=== PATIENT | female | born 1955 | race Caucasian/White ===

== ENCOUNTER 2020-12-11 10:00 | Outpatient (CLI) | payer MEDICARE, MEDICAID, SELFPAY ==
[2020-12-11 11:19] LABS: Basophils # 0.1 10^3/uL (0.0-0.1); Basophils % 0.6 %; Eosinophils # 0.2 10^3/uL (0.0-0.8); Hematocrit 46.1 % (37.0-47.0); Hemoglobin 14.5 g/dL (11.5-15.3); Lymphocytes # 2.2 10^3/uL (0.8-4.8); Lymphocytes % 21.1 %; Mean Corpuscular HGB Conc 31.5 g/dL (30.0-36.0); Mean Corpuscular Hemoglobin 30.5 pg (28.0-34.0); Mean Corpuscular Volume 96.8 fl (81-99); Mean Platelet Volume 10.6 fL (7.4-10.4); Monocytes # 0.9 10^3/uL (0.2-0.9); Monocytes % 8.7 %; Neutrophils # 6.89 10^3/uL (1.8-7.7); Neutrophils % 66.6 %; Nucleated Red Blood Cells % 0 %; Platelet Count 304 10^3/cmm (130-400); Red Blood Count 4.76 10^6/uL (4.1-5.3); Red Cell Distribution Width 12.6 % (12.1-15.1); White Blood Count 10.3 10^3/uL (4.0-10.0)
[2020-12-11 11:45] LABS: Alanine Aminotransferase 19 U/L (0-33); Albumin Level 4.3 g/dL (3.5-5.2); Alkaline Phosphatase 84 IU/L (35-105); Anion Gap 15.3 (5-19); Aspartate Amino Transferase 20 U/L (0-32); Blood Urea Nitrogen 15 mg/dL (8-23); C Reactive Protein 2.8 mg/L (0.0-4.9); Calcium 9.6 mg/dL (8.5-10.5); Carbon Dioxide 23 mmol/L (22-29); Chloride 101 mmol/L (98-107); Globulin 2.6 g/dL (1.3-4.6); Glomerular Filtration Rate 62.5 mL/min (90-130); Glucose 91 mg/dL (65-115); Osmolality Calculated 280 mOsm/kg (285-295); Potassium 4.3 mmol/L (3.5-5.1); Sodium 135 mmol/L (136-145); Total Bilirubin 0.3 mg/dL (0.15-1.2); Total Protein 6.9 g/dL (6.6-8.7)
[2020-12-15 10:59] LABS: Erythrocyte Sedimentation Rate 5 mm/hr (0-15)
[2020-12-15 13:18] LABS: SCL 70 <1.0 NEG AI (<1.0 NEG)
[2020-12-15 13:27] LABS: Anti-Double Strand DNA AB 4 IU/mL; SS A Ro Sjogrens Antibody <1.0 NEG AI (<1.0 NEG); SS-B/LA IGG <1.0 NEG AI (<1.0 NEG)
[2020-12-15 15:12] LABS: Anti-Nuclear Antibody Screen NEGATIVE (NEGATIVE)
[2020-12-15 15:32] LABS: Cyclic Citrullinated Peptide <16 UNITS
[2020-12-15 16:02] LABS: Alternaria Alternata (M6) Ige <0.10 kU/L; Alternaria Class 0; Bermuda Class 0; Bermuda Grass (G2) Ige <0.10 kU/L; Cat Dander (E1) Ige <0.10 kU/L; Cat Dander Class 0; Common Ragweed (Short) (W1) Ig <0.10 kU/L; D. Farinae Class 0; Dermatophagoides Class 0; Dermatophagoides Farinae (D2) <0.10 kU/L; Dermatophagoides Pteronyssinus <0.10 kU/L; Dog Dander (E5) Ige <0.10 kU/L; Dog Dander Class 0; Elm (T8) Ige <0.10 kU/L; Elm Class 0; English Plantain (W9) Ige <0.10 kU/L; English Plantain Class 0; House Dust (Greer) (H1) Ige <0.10 kU/L; House Dust (Hollister- Stier) <0.10 kU/L; House Dust Class 0; Immunoglobulin E 10 kU/L (<OR=114); Immunoglobulin E 9 kU/L (<OR=114); Johnson Grass (G10) Ige <0.10 kU/L; Johnson Grass Cl 0; June Grass Class 0; June Grass(Kentucky Blue) (G8) <0.10 kU/L; Lamb'S Quarters (Goose Foot) <0.10 kU/L; Lamb'S Quarters Class 0; Maple (Box Elder) (T1) Ige <0.10 kU/L; Maple Class 0; Meadow Fescue (G4) Ige <0.10 kU/L; Meadow Fescue Class 0; Mucor Racemosus Class 0; Oak (T7) Ige <0.10 kU/L; Oak Class 0; Orchard Grass (Cocksfoot) (G3) <0.10 kU/L; Penicillium Class 0; Penicillium Notatum (M1) Ige <0.10 kU/L; Perennial Rye Grass (G5) Ige <0.10 kU/L; Perennial Rye Grass Class 0; Ragweeed Class 0; Rough Marsh Elder (W16) Ige <0.10 kU/L; Rough Marsh Elder Class 0; Sweet Vernal Class 0; Sweet Vernal Grass (G1) Ige <0.10 kU/L; Timothy Grass (G6) Ige <0.10 kU/L; Timothy Grass Class 0
[2020-12-16 16:32] LABS: Aspergillus Fumigatus, Igg Ab, 5.6 mg/L (<=102)
== END 2020-12-11 10:01 | disposition home or self-care (01) ==
PROVIDERS: Visit Provider Internal Medicine Pulmonary Disease
DX: J44.9 Chronic obstructive pulmonary disease, unspecified (principal); R06.02 Shortness of breath
CPT/HCPCS: 80053; 82785; 85025; 85651; 86003; 86038; 86140; 86200; 86225; 86235; 86331; 86431; 86606; 86609

== ENCOUNTER 2020-12-24 23:21 | Emergency (ER) | payer MEDICARE, MEDICAID, SELFPAY ==
[2020-12-24 23:29] VITALS: BP 151/82; PULSE 70; RESP 22; TEMP 36.7; O2SAT 94; BMI 24.2
--- NOTE | 2020-12-24 23:40 | CTR_ITS ---
PROCEDURE INFORMATION: Exam: CT Chest Without Contrast; Diagnostic Exam date and time: 12/24/2020 11:40 PM Age: 65 years old Clinical indication: Injury or trauma; Abdominal wall; Blunt trauma (contusions or hematomas); Prior surgery; Surgery type: Hysterectomy. Left hip. ; Patient HX: Fall last night onto left side. C/O left chest/abd wall pain. TECHNIQUE: Imaging protocol: Diagnostic computed tomography of the chest without contrast. Radiation optimization: All CT scans at this facility use at least one of these dose optimization techniques: automated exposure control; mA and/or kV adjustment per patient size (includes targeted exams where dose is matched to clinical indication); or iterative reconstruction. COMPARISON: CR (CHEST, ) 12/24/2020 11:46 PM RADIATION DOSE METRICS: Total DLP (mGy-cm): 1457.12 FINDINGS: Lungs: Emphysematous changes. Right upper lobe 2.3 cm focal nodular airspace opacity. Pleural spaces: Left lower lobe 8.5 mm pulmonary nodule abutting the posterior pleural surface. Heart: Coronary artery atherosclerotic calcifications. Aorta: Unremarkable. No aortic aneurysm. Lymph nodes: Unremarkable. No enlarged lymph nodes. Bones/joints: Left 8th posterolateral chronic rib fracture. Soft tissues: Unremarkable. IMPRESSION: 1. Negative for acute a traumatic injury to the chest. 2. Left 8th posterolateral chronic rib fracture. 3. Coronary artery atherosclerotic calcifications. 4. Emphysematous changes. 5. Right upper lobe 2.3 cm focal nodular airspace opacity and a left lower lobe 8.5 mm pulmonary nodule abutting the posterior pleural surface. For patients at low risk (minimal or absent history of smoking and of other known risk factors), recommend CT Chest at 3-6 months, then consider CT Chest at 18-24 months. For patients at high risk (history of smoking or of other known risk factors), recommend CT Chest at 3-6 months, then CT Chest at 18-24 months. (Reference: Candida) REFERENCES: Candida Nassar et al. Guidelines for Management of Incidental Pulmonary Nodules Detected on CT Images: From the Fleischner Society 2017. Radiology. 2017;284(1):228-243. PROCEDURE INFORMATION: Exam: CT Abdomen And Pelvis Without Contrast Exam date and time: 12/24/2020 11:40 PM Age: 65 years old Clinical indication: Injury or trauma; Abdominal wall; Blunt trauma (contusions or hematomas); Prior surgery; Surgery type: Hysterectomy. Left hip. ; Patient HX: Fall last night onto left side. C/O left chest/abd wall pain. TECHNIQUE: Imaging protocol: Computed tomography of the abdomen and pelvis without contrast. Radiation optimization: All CT scans at this facility use at least one of these dose optimization techniques: automated exposure control; mA and/or kV adjustment per patient size (includes targeted exams where dose is matched to clinical indication); or iterative reconstruction. COMPARISON: CR (CHEST, ) 12/24/2020 11:46 PM RADIATION DOSE METRICS: Total DLP (mGy-cm): 1457.12 FINDINGS: Liver: Normal. No mass. Gallbladder and bile ducts: Normal. No calcified stones. No ductal dilation. Pancreas: Normal. No ductal dilation. Spleen: Normal. No splenomegaly. Adrenal glands: Normal. No mass. Kidneys and ureters: Normal. No hydronephrosis. Stomach and bowel: Diverticulosis without diverticulitis. Appendix: No evidence of appendicitis. Intraperitoneal space: Unremarkable. No free air. No significant fluid collection. Vasculature: Unremarkable. No abdominal aortic aneurysm. Lymph nodes: Unremarkable. No enlarged lymph nodes. Urinary bladder: Unremarkable as visualized. Reproductive: Unremarkable as visualized. Bones/joints: Unremarkable. No acute fracture. Soft tissues: Unremarkable. CT/CT chest abd pel wo con IMPRESSION: 1. Negative for traumatic injury to the abdomen or pelvis. 2. Diverticulosis without diverticulitis. Radiation Dose CTDIVOL = (mGy): DLP = 1457.12~1457.12 (mGy-cm)
--- NOTE | 2020-12-24 23:40 | XRR_ITS ---
PROCEDURE INFORMATION: Exam: XR Chest Exam date and time: 12/24/2020 11:40 PM Age: 65 years old Clinical indication: Injury or trauma; Blunt trauma (contusions or hematomas); Injury details: Fall x today. Pain in left side of abd/chest TECHNIQUE: Imaging protocol: XR of the chest. Views: 1 view. COMPARISON: No relevant prior studies available. FINDINGS: Lungs: Bibasilar atelectasis versus minimal infiltrate. Pleural spaces: Unremarkable. No pleural effusion. No pneumothorax. Heart/Mediastinum: Unremarkable. No cardiomegaly. Bones/joints: Unremarkable. Hiatal hernia suspected XR/XR chest 1V portable [id number] IMPRESSION: 1. Negative for traumatic injury to the chest. 2. Bibasilar atelectasis versus minimal infiltrate. 3. Hiatal hernia suspected Radiation Dose CTDIVOL = (mGy): DLP = (mGy-cm)
[2020-12-25 00:08] VITALS: RESP 18; O2SAT 95
[2020-12-25] MEDS: morphine 4 mg/mL SDV 1 mL IVP ×2 (00:08→00:56)
[2020-12-25] MEDS: ondansetron 2 mg/ML SDV 2 mL 4 MG IVP (00:08)
--- NOTE | 2020-12-25 00:24 | ED_ITS ---
HPI - Fall General: Chief Complaint: Fall Stated Complaint: FALL Time Seen by Provider: 12/24/20 23:29 Source: patient and EMS Mode of arrival: EMS Limitations: no limitations History of Present Illness: HPI Narrative: 65-year-old female who states that she tripped and fell tonight. She landed on a table with her left ribs. She states that she has had pain in her ribs since then she rates a 6 out of 10 worse with palpation improved with rest. She denies any her head denies any neck pain she is been amatory since the event. Denies passing out Associated symptoms-after fall: Reports chest pain; Denies abdominal pain, headache(s) or neck pain Review of Systems Const: Denies: fever(s), chills, body aches or change in appetite Eyes: Denies: blurry vision or eye discomfort ENMT: Denies: throat pain or dental pain Card: Reports: chest pain Resp: Denies: dyspnea GI: Denies: abdominal pain, nausea, vomiting or diarrhea : Denies: dysuria Musc: Denies: neck pain or back pain Skin/Breast: Denies: rash Neuro: Denies: headache(s) Psych: Denies: depression Vidal/Lymph: Denies: easy bruising All/Imm: Denies: urticaria PFSH ED PFSH: Social History Smoking and tobacco status: former smoker Quit status (tobacco): has quit using tobacco Year quit tobacco: 2019 Former quit date comment: 1.5 ppd x 50 years Physical Exam Const: COMMON NORMALS: no acute distress, patient oriented x3 and healthy appearing HENMT: COMMON NORMALS: normocephalic and atraumatic HEAD & SCALP: normo cephalic and atraumatic Eye: COMMON NORMALS: Equal, round and reactive pupils present and EOMs intact bilaterally PUPIL: Yes Equal, round and reactive pupils present Neck/C-Spine: COMMON NORMALS: full ROM and supple Chest: COMMONS NORMALS: normal inspection of the chest OTHER: point tender over left lower chest Resp: COMMON NORMALS: normal respiratory effort, No retractions, No use of accessory muscles and clear to auscultation bilaterally AUSCULTATION: clear to auscultation bilaterally Cardio: COMMON NORMALS: regular rate, regular rhythm and No murmurs present (Cardio) RATE: regular rate RHYTHM: regular rhythm GI: COMMON NORMALS: Normal to inspection, nondistended, normoactive bowel so unds present, Soft to palpation, non-tender and no masses PALPATION: Yes Soft to palpation Extremity: COMMON NORMALS: normal to inspection and full ROM Neuro: COMMON NORMALS: patient oriented x3, moves all extremities and no focal motor deficits Psych: COMMON NORMALS: mental status grossly normal, Normal thought process present and cooperative THOUGHT PROCESS: Normal thought process present Skin: COMMON NORMALS: no rashes or lesions noted and no wounds GENERAL SKIN EXAM: no rashes or lesions noted Course Vital Signs: Vital signs: Vital Signs Temperature 98.0 F 12/24/20 23:29 Pulse Rate 70 12/24/20 23:29 Respiratory Rate 18 12/25/20 00:08 Blood Pressure 151/82 12/24/20 23:29 Pulse Oximetry 95 12/25/20 00:08 MDM - Fall MDM Narrative: Medical decision making narrative: Patient presents here with chest wall contusion from a fall no signs of any acute injury she is well- appearing had no head injury did inform her of the mass findings on CT she already does see pulmonology she is to follow-up with return if worsening she understands agrees plan. Imaging Data^: CXR: Attestation: I personally reviewed and interpreted this imaging study as follows: Radiologist's impression: [address] [address] XRay Report Signed Patient: Erica Snider Unit #: [id number] : 1955 Age/Sex: 65 / F ADM Date: 12/24/20 Loc: ER Room/Bed: Attending Dr: Ordering Provider/Ordering MD: Gerry Armijo MD Date of Service: 12/24/20 Procedure(s): XR chest 1V portable [id number] Accession Number(s): [id number] Report Number: [id number] PROCEDURE INFORMATION: Exam: XR Chest Exam date and time: 12/24/2020 11:40 PM Age: 65 years old Clinical indication: Injury or trauma; Blunt trauma (contusions or hematomas); Injury details: Fall x today. Pain in left side of abd/chest TECHNIQUE: Imaging protocol: XR of the chest. Views: 1 view. COMPARISON: No relevant prior studies available. FINDINGS: Lungs: Bibasilar atelectasis versus minimal infiltrate. Pleural spaces: Unremarkable. No pleural effusion. No pneumothorax. Heart/Mediastinum: Unremarkable. No cardiomegaly. Bones/joints: Unremarkable. Hiatal hernia suspected XR/XR chest 1V portable [id number] IMPRESSION: 1. Negative for traumatic injury to the chest. 2. Bibasilar atelectasis versus minimal infiltrate. 3. Hiatal hernia suspected Radiation Dose CTDIVOL = (mGy): DLP = (mGy-cm) Dictated By: Cristobal Story MD Signed By: Cristobal Story MD Signed Date/Time: 12/25/20 0020 DD/ 39 CT Chest: Attestation: I personally reviewed and interpreted this imaging study as follows: Radiologist's impression: [address] [place] [address] CT Scan Report Signed Patient: Erica Snider Unit #: [id number] : 1955 Age/Sex: 65 / F ADM Date: 12/24 Loc: ER Room/Bed: Attending Dr: Ordering Provider/Ordering MD: Gerry Armijo MD Date of Service: 12/24/20 Procedure(s): CT chest abd pel wo con Accession Number(s): [id number] Report Number: [id number] PROCEDURE INFORMATION: Exam: CT Chest Without Contrast; Diagnostic Exam date and time: 12/24/2020 11:40 PM Age: 65 years old Clinical indication: Injury or trauma; Abdominal wall; Blunt trauma (contusions or hematomas); Prior surgery; Surgery type: Hysterectomy. Left hip. ; Patient HX: Fall last night onto left side. C/O left chest/abd wall pain. TECHNIQUE: Imaging protocol: Diagnostic computed tomography of the chest without contrast. Radiation optimization: All CT scans at this facility use at least one of these dose optimization techniques: automated exposure control; mA and/or kV adjustment per patient size (includes targeted exams where dose is matched to clinical indication); or iterative reconstruction. COMPARISON: CR (CHEST, ) 12/24/2020 11:46 PM RADIATION DOSE METRICS: Total DLP (mGy-cm): 1457.12 FINDINGS: Lungs: Emphysematous changes. Right upper lobe 2.3 cm focal nodular airspace opacity. Pleural spaces: Left lower lobe 8.5 mm pulmonary nodule abutting the posterior pleural surface. Heart: Coronary artery atherosclerotic calcifications. Aorta: Unremarkable. No aortic aneurysm. Lymph nodes: Unremarkable. No enlarged lymph nodes. Bones/joints: Left 8th posterolateral chronic rib fracture. Soft tissues: Unremarkable. IMPRESSION: 1. Negative for acute a traumatic injury to the chest. 2. Left 8th posterolateral chronic rib fracture. 3. Coronary artery atherosclerotic calcifications. 4. Emphysematous changes. 5. Right upper lobe 2.3 cm focal nodular airspace opacity and a left lower lobe 8.5 mm pulmonary nodule abutting the posterior pleural surface. For patients at low risk (minimal or absent history of smoking and of other known risk factors), recommend CT Chest at 3-6 months, then consider CT Chest at 18-24 months. For patients at high risk (history of smoking or of other known risk factors), recommend CT Chest at 3-6 months, then CT Chest at 18-24 months. (Reference: Candida) REFERENCES: Candida H, et al. Guidelines for Management of Incidental Pulmonary Nodules Detected on CT Images: From the Fleischner Society 2017. Radiology. 2017;284(1):228-243. PROCEDURE INFORMATION: Exam: CT Abdomen And Pelvis Without Contrast Exam date and time: 12/24/2020 11:40 PM Age: 65 years old Clinical indication: Injury or trauma; Abdominal wall; Blunt trauma (contusions or hematomas); Prior surgery; Surgery type: Hysterectomy. Left hip. ; Patient HX: Fall last night onto left side. C/O left chest/abd wall pain. TECHNIQUE: Imaging protocol: Computed tomography of the abdomen and pelvis without contrast. Radiation optimization: All CT scans at this facility use at least one of these dose optimization techniques: automated exposure control; mA and/or kV adjustment per patient size (includes targeted exams where dose is matched to clinical indication); or iterative reconstruction. COMPARISON: CR (CHEST, ) 12/24/2020 11:46 PM RADIATION DOSE METRICS: Total DLP (mGy-cm): 1457.12 FINDINGS: Liver: Normal. No mass. Gallbladder and bile ducts: Normal. No calcified stones. No ductal dilation. Pancreas: Normal. No ductal dilation. Spleen: Normal. No splenomegaly. Adrenal glands: Normal. No mass. Kidneys and ureters: Normal. No hydronephrosis. Stomach and bowel: Diverticulosis without diverticulitis. Appendix: No evidence of appendicitis. Intraperitoneal space: Unremarkable. No free air. No significant fluid collection. Vasculature: Unremarkable. No abdominal aortic aneurysm. Lymph nodes: Unremarkable. No enlarged lymph nodes. Urinary bladder: Unremarkable as visualized. Reproductive: Unremarkable as visualized. Bones/joints: Unremarkable. No acute fracture. Soft tissues: Unremarkable. CT/CT chest abd pel wo con IMPRESSION: 1. Negative for traumatic injury to the abdomen or pelvis. 2. Diverticulosis without diverticulitis. Radiation Dose CTDIVOL = (mGy): DLP = 1457.12 1457.12 (mGy-cm) Dictated By: Cristobal Story MD Signed By: Cristobal Story MD Signed Date/Time: 12/25/20 0025 DD/ 2340 Discharge Plan Discharge Patient Disposition: Home Clinical Impression: Chest wall contusion, Fall, Lung mass Condition: Stable Prescriptions: New hydrocodone-acetaminophen 5-325 mg tablet 1 tab PO Q6H PRN (Reason: pain) Qty: 14 RF: 0 No Action Breztri Aerosphere 160-9-4.8 mcg/actuation HFA aerosol inhaler 2 inh inhalation BID Qty: 10.7 RF: 3 guaifenesin [Mucinex] 600 mg tablet extended release 12hr 600 mg PO BID Qty: 20 RF: 0 Discharge Orders: Discharge ED (Routine); Ordered 12/25/20 Ordered By: Gerry Armijo Referrals: Janusz Barboza MD [Primary Care Provider] - 1-3 days Discharge Diet: Advance as tolerated Discharge Activity: Resume usual activity Patient Instructions: Fall Prevention (ED), Chest Wall Pain (ED) Coding Level of Care Code ED Hvac Residential Service Technician for Chg Fwd Exam Comprehensive
[2020-12-25 00:56] VITALS: RESP 18
[2020-12-25 01:24] VITALS: BP 126/68; PULSE 92; RESP 19; O2SAT 95
--- NOTE | 2020-12-26 11:13 | DCPLANNER ---
health information managers had message to schedule a follow up appointment for patient with heart care with Dr. Juarez. health information managers called heart care, spoke with Sonia, patient has a follow up appointment scheduled for 01.22.[address] Beal, and a follow up appointment with Dr. Robertson on 12.31.20 patient is aware of both appointments.
== END 2020-12-25 01:25 | disposition home or self-care (01) ==
PROVIDERS: Emergency Provider Emergency Medicine; PCP Family Medicine
DX: S20.219A Contusion of unspecified front wall of thorax, initial encounter (principal); R91.8 Other nonspecific abnormal finding of lung field; Z87.891 Personal history of nicotine dependence; W01.0XXA Fall on same level from slipping, tripping and stumbling without subsequent striking against object, initial encounter
CPT/HCPCS: 71045; 71250; 74176; 96374; 96375; 96376; 99284; J2270; J2405

== ENCOUNTER 2021-01-15 13:38 | Outpatient (CLI) | payer MEDICARE, MEDICAID, SELFPAY ==
--- NOTE | 2021-01-15 13:43 | CT_ITS ---
WS: [id number] CT CHEST TECHNIQUE: Noncontrast CT of the chest with coronal and sagittal reformatted images. CLINICAL INFORMATION: Lung Nodule COMPARISON: CT December 24, 2020 DLP: 427.[address] scans at [facility] use at least one of these dose optimization techniques: automated e xposure control; mA and/or kV adjustment per patient size (includes targeted exams where dose is matc hed to clinical indication); or iterative reconstruction. FINDINGS: Left lower lobe subpleural nodule measures 7 mm. This is unchanged from previous. Fibrotic spiculated opacity in the right upper lobe also unchanged from the prior examination measuring 1.5 CM. Advanced chronic emphysematous changes. Small noncalcified nodule in the right upper lobe also unchanged jay uring 4 mm. A few calcified granulomas. No acute pulmonary infiltrates. No focal pneumonia or pleural fluid. Driver Guide alec left rib fractures with callus formation. Subsegmental atelectasis in the lingula. Aortic calcifi cation. Coronary calcification. Calcified mediastinal and hilar lymph nodes. Right thyroid nodule shikha suring 1.3 cm is unchanged. No axillary lymphadenopathy. Adrenal glands are normal. Fatty atrophy of the pancreas. Splenic granulomas. CT/CT chest wo con [id number] IMPRESSION: 1. Previously described pulmonary nodules are stable. Recommend 6 month follow -up. 2. Advanced chronic emphysematous changes. No acute pulmonary infiltrates. 3. Aortic calcification and coronary calcification. 4. Stable 1.3 cm right thyroid nodule.
== END 2021-01-15 13:39 | disposition home or self-care (01) ==
PROVIDERS: PCP Family Medicine; Visit Provider Internal Medicine Pulmonary Disease
DX: R91.1 Solitary pulmonary nodule (principal); E04.1 Nontoxic single thyroid nodule; I70.0 Atherosclerosis of aorta; I25.10 Atherosclerotic heart disease of native coronary artery without angina pectoris; R91.8 Other nonspecific abnormal finding of lung field
CPT/HCPCS: 71250

== ENCOUNTER 2021-01-15 17:18 | Observation (INO) | payer MEDICARE, MEDICAID, SELFPAY ==
--- NOTE | 2021-01-15 17:27 | W.ED.CHESTPA ---
HPI - Chest Pain General: Chief Complaint: Chest Pain Stated Complaint: CHEST PAIN Time Seen by Provider: 01/15/21 17:25 History of Present Illness: HPI narrative: Ms. Snider is a 65-year-old lady with history of hypertension, hyperlipidemia, hypothyroidism, history of tobaccoism/COPD with chronic hypoxic respiratory failure who presents the emergency department due to chest pain. Symptom onset was a few hours ago at rest. The patient describes a somewhat emotional conversation with family member. She describes substernal chest pain with radiation tightness to the jaw. Associated shortness of breath, nausea, vomiting. Earlier today has been at baseline health. Intensity symptoms moderate and has now resolved. No other specific exacerbating or alleviating factors. No frequent history of similar Review of Systems General: Reports: 10 or more systems reviewed and unremarkable except in HPI and below PFS ED PFSH: Medical History Asthma-COPD overlap syndrome HTN (hypertension) Hypothyroidism Osteoporosis Social History Smoking and tobacco status: current every day smoker Quit status (tobacco): has quit using tobacco Year quit tobacco: 2019 Former quit date comment: 1.5 ppd x 50 years Physical Exam Narrative: EXAM NARRATIVE: GENERAL/CONSTITUTIONAL - well-appearing. No acute distress. Eyes - PERRL, no conjunctival injection ENMT - Atraumatic external nose and ears. Moist mucous membranes NECK - supple. trachea midline CARDIOVASCULAR - regular rate and rhythm. RESPIRATORY -diminished to auscultation bilaterally. No retractions or accessory muscle use. ABDOMEN/GI - Nontender/Nondistended. MSK - Extremities without obvious deformity or tenderness to palpation SKIN - Warm, Dry NEURO - alert and appropriately oriented. Moves all extremities equally. Course ED course: - Patient was seen and evaluated by me at bedside - Patient placed on cardiac monitors, IV access obtained - Initial evaluation notable for no acute distress, nontoxic appearance. Chest pain not reproducible on physical exam maneuvers. -Symptom treatment ordered. - Labs notable for mild leukocytosis. No acute electrolyte abnormality. Delta troponin negative. - Prior to ED evaluation the patient had a outpatient CT scan, I do not feel that chest x-ray with add anything to the patient's evaluation at this time. Imaging was reviewed. - Upon serial reexamination after treatment the patient was similar without recurrence of chest pain - Based on patient history, evaluation, labs, and imaging as interpreted the most likely cause of the patient's condition is chest pain with moderate risk heart score. I discussed possible options regarding admission versus discharge, patient uncomfortable with discharge at this time and does warrant inpatient further cardiac evaluation - The results of ED evaluation were discussed with the patient including plan for admission due to requirement for level of care not available if discharged to prevent significant worsening/deterioration. -Hospitalist service contacted and agreed to admit the patient. - Patient was admitted without further deterioration or significant events. Vital Signs: Vital signs: Vital Signs Temperature 97.9 F 01/16/21 15:25 Pulse Rate 74 01/16/21 15:25 Respiratory Rate 18 01/16/21 15:25 Blood Pressure 130/81 01/16/21 15:25 Pulse Oximetry 95 01/16/21 15:25 MDM - Chest Pain Medical Records: Attestation: I reviewed the patient's medical records. Lab Data: Attestation: I reviewed the patient's lab results. Labs: Lab Results 01/15/21 01/15/21 01/15/21 18:30 18:30 18:30 WBC 12.1 10^3/uL H 10 ^3/uL (4.0-10.0) RBC 4.22 10^6/uL 10^6 /uL (4.1-5.3) Hgb 13.1 g/dL g/dL (11.5-15.3) Hct 41.4 % % (37.0-47.0) MCV 98.1 fl fl (81-99) MCH 31.0 pg pg (28.0-34.0) MCHC 31.6 g/dL g/dL (30.0-36.0) RDW 13.1 % % (12.1-15.1) Plt Count 252 10^3/cmm 10^3 /cmm (130-400) MPV 10.6 fL H fL (7.4-10.4) Neut % (Auto) 59.6 % % Lymph % (Auto) 23.3 % % [place] % (Auto) 9.4 % % Eos % (Auto) 5.3 % % Baso % (Auto) 0.5 % % Neut # (Auto) 7.24 10^3/uL 10^3 /uL (1.8-7.7) Lymph # (Auto) 2.8 10^3/uL 10^3/ uL (0.8-4.8) [place] # (Auto) 1.1 10^3/uL H 10^ 3/uL (0.2-0.9) Eos # (Auto) 0.6 10^3/uL 10^3/ uL (0.0-0.8) Baso # (Auto) 0.1 10^3/uL 10^3/ uL (0.0-0.1) Nucleated RBC % (a uto) 0 % % Nucleated RBCs # 0.0 /100WBC /100W BC Sodium 141 mmol/L mmol/L (136-145) Potassium 4.2 mmol/L mmol/L (3.5-5.1) Chloride 104 mmol/L mmol/L (98-107) Carbon Dioxide 29 mmol/L mmol/L (22-29) Anion Gap 12.2 (5-19) BUN 18 mg/dL mg/dL (8-23) Creatinine 0.8 mg/dL mg/dL (0.5-0.9) GFR Calculation 71.5 mL/min L mL/ min (90-130) Glucose 94 mg/dL mg/dL (65-115) Calculated Osmolal ity 294 mOsm/kg mOsm/ kg (285-295) Calcium 8.6 mg/dL mg/dL (8.5-10.5) Total Bilirubin 0.2 mg/dL mg/dL (0.15-1.2) AST 11 U/L U/L (0-32) ALT 18 U/L U/L (0-33) Alkaline Phosphata se 98 IU/L IU/L (35-105) Troponin T Baselin e 21 ng/L H ng/L (0-10) Troponin T 120 Min trevon Delta Troponin T Total Protein 5.3 g/dL L g/dL (6.6-8.7) Albumin 3.7 g/dL g/dL (3.5-5.2) Globulin 1.6 g/dL g/dL (1.3-4.6) 01/15/21 20:21 WBC RBC Hgb Hct MCV MCH MCHC RDW Plt Count MPV Neut % (Auto) Lymph % (Auto) [place] % (Auto) Eos % (Auto) Baso % (Auto) Neut # (Auto) Lymph # (Auto) [place] # (Auto) Eos # (Auto) Baso # (Auto) Nucleated RBC % (a uto) Nucleated RBCs # Sodium Potassium Chloride Carbon Dioxide Anion Gap BUN Creatinine GFR Calculation Glucose Calculated Osmolal ity Calcium Total Bilirubin AST ALT Alkaline Phosphata se Troponin T Baselin e Troponin T 120 Min trevon 19.49 ng/L H ng/L (0-10) Delta Troponin T -1.51 ABS# L ABS# (0-10) Total Protein Albumin Globulin EKG Data^: EKG 1: Attestation: I personally reviewed and interpreted this EKG as follows: EKG interpretation date: 01/15/21 EKG interpretation time: 17:38 Interpretation: Twelve-lead EKG shows a regular rhythm at a rate of 62. NH interval 180, QRS duration 86, QT TC 408. Normal axis. Interpretation: Sinus rhythm, mildly limited interpretation due to baseline artifact Discharge Plan Discharge Patient Disposition: Placed in Observation Admit Provider: Liliana Sears Clinical Impression: Chest pain Discharge Diet: Cardiac Discharge Activity: Resume usual activity Coding Level of Care Code ED Polymer Specialist for Chg Fwpadilla
[2021-01-15 17:41] VITALS: BP 126/59; PULSE 63; RESP 16; TEMP 37.2; O2SAT 96
--- NOTE | 2021-01-15 17:51 | ECG_ITS ---
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 Measurements Intervals [place] Rate: 62 P: 62 ID: [id number] QRS: -11 QRSD: 86 T: 48 QT: 402 QTc: 410 Interpretive Statements SINUS RHYTHM No previous ECG available for comparison Electronically Signed On 01-16-2021 6:34:49 RETAIL PERFORMANCE SPECIALIST by Marta Robertson M.D. [id number]
[2021-01-15 18:34] LABS: Basophils # 0.1 10^3/uL (0.0-0.1); Basophils % 0.5 %; Eosinophils # 0.6 10^3/uL (0.0-0.8); Eosinophils % 5.3 %; Hematocrit 41.4 % (37.0-47.0); Hemoglobin 13.1 g/dL (11.5-15.3); Lymphocytes # 2.8 10^3/uL (0.8-4.8); Lymphocytes % 23.3 %; Mean Corpuscular HGB Conc 31.6 g/dL (30.0-36.0); Mean Corpuscular Volume 98.1 fl (81-99); Mean Platelet Volume 10.6 fL (7.4-10.4); Monocytes # 1.1 10^3/uL (0.2-0.9); Monocytes % 9.4 %; Neutrophils # 7.24 10^3/uL (1.8-7.7); Neutrophils % 59.6 %; Nucleated Red Blood Cells % 0 %; Platelet Count 252 10^3/cmm (130-400); Red Blood Count 4.22 10^6/uL (4.1-5.3); Red Cell Distribution Width 13.1 % (12.1-15.1); White Blood Count 12.1 10^3/uL (4.0-10.0)
[2021-01-15 18:58] LABS: Troponin(5th) Baseline 21 ng/L (0-10)
[2021-01-15 19:00] LABS: Alanine Aminotransferase 18 U/L (0-33); Albumin Level 3.7 g/dL (3.5-5.2); Alkaline Phosphatase 98 IU/L (35-105); Anion Gap 12.2 (5-19); Aspartate Amino Transferase 11 U/L (0-32); Blood Urea Nitrogen 18 mg/dL (8-23); Calcium 8.6 mg/dL (8.5-10.5); Carbon Dioxide 29 mmol/L (22-29); Chloride 104 mmol/L (98-107); Globulin 1.6 g/dL (1.3-4.6); Glomerular Filtration Rate 71.5 mL/min (90-130); Glucose 94 mg/dL (65-115); Osmolality Calculated 294 mOsm/kg (285-295); Potassium 4.2 mmol/L (3.5-5.1); Sodium 141 mmol/L (136-145); Total Bilirubin 0.2 mg/dL (0.15-1.2); Total Protein 5.3 g/dL (6.6-8.7)
[2021-01-15 20:44] LABS: Troponin 5 2HR 19.49 ng/L (0-10)
[2021-01-15 20:45] LABS: Troponin 5 2HR Delta -1.51 ABS# (0-10)
[2021-01-15 21:50] VITALS: BP 155/59; PULSE 64; RESP 16; O2SAT 94
[2021-01-15 22:00] VITALS: BP 142/60; O2SAT 93
[2021-01-15 23:00] VITALS: BP 103/76; RESP 22; O2SAT 93
--- NOTE | 2021-01-15 23:51 | ECG_ITS ---
[facility] Test Date: 2021-01-16 Pat Name: Erica Snider Department: Room: 276 Gender: Female Table Games Dealer: : 1955 Requested By: Enmanuel Prajapati Order Number: [id number] Liban MD: Luis Daniel Martin M.D. Measurements Intervals Plato Rate: 65 P: 67 KS: 176 QRS: -18 QRSD: 85 T: 57 QT: 397 QTc: 414 Interpretive Statements SINUS RHYTHM Compared to ECG 01/15/2021 17:36:24 No significant changes Electronically Signed On 01-19-2021 17:33:23 REAL ESTATE OFFICE MANAGER by Luis Daniel Martin M.D. [id number]
[2021-01-16] VITALS (14 sets, daily range): BP systolic 103–151; BP diastolic 65–82; PULSE 63–90; RESP 16–22; TEMP 36.6–36.9; O2SAT 93–99
--- NOTE | 2021-01-16 00:02 | P.HP_ITS ---
Providers/Chief Complaint Admitting Physician: Liliana Sears MD Primary Care Provider: Janusz Barboza MD Chief Complaint: CHEST PAIN History of Present Illness Erica Snider is a 65 year old female with past medical history of advanced COPD on home oxygen 2 to 3 L/min, multiple sclerosis, hypertension, hypothyroidism, osteoporosis, presenting to the emergency room today due to complaints of chest pain. Patient states that she was having a stressful phone call with one of her nieces when the symptoms started. Describes it as a midsternal chest pressure that was radiating into her jaw and face. She did fall about 2 weeks ago following which she sustained some trauma to the left side of her chest wall. CT was performed at that time which was negative for any rib fracture. However states she has had some left-sided discomfort since this fall ever since. She has recently additionally seen cardiology as an outpatient on December 31 and had complained of chest discomfort at the time and was planned for an outpatient stress test. EKG today shows no acute ST-T wave changes, troponin series without significant delta at 2 hours. States her cough and dyspnea are at baseline, as is her home O2 requirement. Denies any recent fever URI symptoms chills cough etc. Unvaccinated for COVID- 19. has a PMH PE, unrelated to DVT per her history in 1994, was on a/c for few m ontsh afterwards, taken off 1994 itself after f/up with PMD. Has continued on ASA 81mg ever since. No cause for PE established at the time per patient Review of Systems General: Reports: 10 or more systems reviewed and unremarkable except in HPI and below Const: Denies: fever(s), chills or body aches Eyes: Denies: change in vision, blurry vision or photophobia ENMT: Reports: hoarseness; Denies: throat pain, enlarged tonsils, odynophagia or nasal congestion Card: Denies: chest pain, palpitations, irregular heart rhythm, edema, swelling of feet/ankles, lightheadedness, pre-syncope, dyspnea on exertion or orthopnea Resp: Denies: dyspnea, productive cough, non-productive cough, wheezing, st ridor, pain on inspiration, change in phlegm color, hemoptysis or chest congestion GI: Denies: abdominal pain, nausea, vomiting, hematemesis, coffee ground emesis, dysphagia, heartburn, diarrhea, constipation, GI cramping, change in stool character, hematochezia or melena : Denies: flank pain, difficulty voiding, dysuria, urinary frequency, urinary urgency, urinary hesitancy or hematuria Musc: Denies: neck pain, back pain, extremity pain, joint swelling, joint warmth or deformity Neuro: Denies: headache(s), numbness in extremities, weakness in extremities, sensory changes, difficulty walking, frequent falls, dizziness, vertigo, behavioral changes, Slurred speech present or seizure-like activity Psych: Denies: anxiety, depression, suicidal ideation or homicidal ideation Endo: Denies: polyuria, polydipsia, tired all the time, cold intolerance or hot flashes Vidal/Lymph: Denies: easy bruising or easy bleeding Medications/Allergies Home Medications Medication Instructions Recorded Confirmed Last Taken Type budesonide 160 mcg-glycopyr 9 2 inh INHALATION BID #10.7 g 12/11/20 12/31/20 Unknown Rx mcg-formot 4.8 mcg/actuation HFA inhaler guaifenesin 600 mg tablet, 600 mg PO BID #20 tab 12/11/20 12/31/20 Unknown Rx extended release 12 hr hydrocodone-acetaminophen 1 tab PO Q6H PRN #14 tab 12/25/20 12/31/20 Unknown Rx albuterol sulfate 90 mcg/actuation g INHALATION 12/31/20 12/31/20 Unknown History aerosol inhaler aspirin 81 mg tablet,delayed 81 mg PO DAILY 12/31/20 12/31/20 Unknown History release ciprofloxacin HCl 500 mg tablet tab PO 12/31/20 12/31/20 Unknown History duloxetine 60 mg capsule,delayed cap PO 12/31/20 12/31/20 Unknown History release famotidine 20 mg tablet tab PO 12/31/20 12/31/20 Unknown History gabapentin 600 mg tablet 300 mg PO BID tab 12/31/20 12/31/20 Unknown History levothyroxine 50 mcg tablet tab PO 12/31/20 12/31/20 Unknown History metoprolol tartrate 25 mg tablet tab PO 12/31/20 12/31/20 Unknown History tiotropium bromide 18 mcg capsule cap INHALATION 12/31/20 12/31/20 Unknown History with inhalation device Allergies Allergy/AdvReac Type Severity Reaction Status Date / Time aspirin [From Percodan] Allergy Unknown Unknown Verified 12/31/20 09:50 Iodinated Contrast Media Allergy Unknown Unknown Verified 12/31/20 09:50 oxycodone [From Percocet] Allergy Unknown Unknown Verified 12/31/20 09:50 PFSH Acute PFSH: Medical History Asthma-COPD overlap syndrome HTN (hypertension) Hypothyroidism Osteoporosis Social History Smoking and tobacco status: current every day smoker Quit status (tobacco): has quit using tobacco Year quit tobacco: 2019 Former quit date comment: 1.5 ppd x 50 years Vitals/I&O/Wt Last Vital Signs Temp 99.0 F 01/15/21 17:41 Pulse 64 01/15/21 21:50 Resp 16 01/15/21 21:50 BP 155/59 01/15/21 21:50 Pulse Ox 94 01/15/21 21:50 Physical Exam Narrative: EXAM NARRATIVE: General: No acute distress, AO x3 HEENT: PERRLA, pupils bilaterally equal and reactive, pallors not present Chest: Normal vesicular breath sounds, no added sounds, equal good air entry bilaterally CVS: S1-S2 regular, no murmurs, no tachycardia, no gallops, no rubs Abdomen: Soft, nontender, no organomegaly, bowel sounds present Neuro: No focal deficits, no facial deformity, AO x3, power 5/5 in all limbs Extremities: no edema or cyanosis Data : 01/15/21 18:30 01/15/21 18:30 A&P Assessment and plan (1) Chest pain: Patient with PMH as above p/w c/o chest pain which has been ongoing over past few weeks. Had been planned for outpatient stress test due to concern for anginal type chest pain. Currently EKG withotu acute St-T wave changes and troponin negative at 2 hrs. Penidng 6 gr troponin COPd symptoms at baseline, no exacerbation currently Will perform stress test in am due to ongoing concern for unstable angina Continue ASA, metoprolol further care based on results of stress test Continue duonebs and budesonide standing inh left side lidocaine patch to chest fall due to pain from recent fall. Status: Acute Attestations Medical Necessity Statement*: Anticipate less than 2 midnight admission for above care Coding Level of Care Code Acute Floatlight Loading Supervisor for Chg Fwd Diagnoses Chest pain R07.9
--- NOTE | 2021-01-16 00:02 | ECG_ITS ---
[facility] Test Date: 2021-01-16 Pat Name: Erica Snider Department: Room: 276 Gender: Female Erco Machine Operator: Stacie Epstein : 1955 Requested By: Liliana Sears Order Number: [id number] Liban MD: Marta Robertson M.D. Interpretive Statements NAME OF STUDY: LEXISCAN SESTAMIBI STRESS TEST INDICATION: Angina PROCEDURE: At the baseline, the blood pressure was 141/75 mmHg, oxygen saturation 94% with a heart rate of 72 bpm. The electrocardiogram showed normal sinus rhythm, normal axis. Normal ST-T's. The Lexiscan was infused over a period of 20 seconds. A total of 0.4 milligrams of Lexiscan was infused. The stress phase was continued for a total of 5 minutes. Heart rate at the end of the stress phase was 92 bpm, oxygen saturation 96% with a blood pressure of 156/69 mmHg. The EKG at the peak infusion revealed sinus rhythm with no significant ST-T wave changes. The study was terminated due to protocol completion. Sestamibi was injected 20 seconds after the Lexiscan infusion. Blood pressure at the end of the recovery phase was 136/69 mmHg, oxygen saturation 93% with a heart rate of 90 beats per minute. CONCLUSION: 1. Normal EKG response to LexiScan infusion. 2. No LexiScan induced chest pain or cardiac arrhythmia. 3. Normal blood pressure and heart rate response. 4. Sestamibi/sestamibi perfusion scan pending; see separate report. Electronically Signed On 01-16-2021 13:52:13 MATHEMATICS TECHNICIAN by Marta Robertson M.D. [id number]
--- NOTE | 2021-01-16 00:05 | NMCV_ITS ---
NM arpan perf SPECT r/s* [id number] Erica Snider Age: 65 Gender: F : 1955 Exam Date: 01/16/2021 00:05 Ordering Phys: Liliana Sears MD Technologist: MICHELLE Jiang Exam Location: [facility] Indications: CHEST PAIN STRESS TEST Please see separate stress test report in [facility] for full findings IMAGE PROTOCOL Rest/Stress 1 Lexiscan Day Radiopharmaceutical Dose (mCi) Administration Site Administered by Rest: Tc-99m 10.8 IV MICHELLE Jones Sestamibi Stress:Tc-99m 33.0 IV MICHELLE Jones Sestamibi Rest: 16-Jan-2021 60 Discovery 630 Stress: 16-Jan-2021 30 Discovery 630 0.4mg Lexiscan. Images obtained in supine and prone position. SPECT RESULTS Technical Quality: Excellent Raw Data Analysis: Normal Image Corrections: No attenuation or motion correction applied Summed Stress Score: 0 Summed Rest Score: 0 Summed Difference Score: 0 PERFUSION FINDINGS SPECT images demonstrate homogeneous tracer distribution throughout the myocardium. FUNCTIONAL RESULTS (calculated via Gated SPECT) Stress Image LV EF (%): 82 Stress EDV (mL):45 TID: 1.13 Stress ESV (mL):8 FUNCTIONAL FINDINGS: The left ventricle is normal in size. Transient Ischemia Dilatation of 1.1. There is normal left ventricular systolic function. The left ventricular ejection fraction is normal with a value of 82%. There is normal left ventricular wall thickening with no regional wall motion abnormality. IMPRESSIONS 1. Myocardial perfusion imaging is normal. 2. Overall left ventricular systolic function is normal without regional wall motion abnormalities. 3. The left ventricular ejection fraction is normal with a value of 82%. 4. No EKG changes with Lexiscan infusion. Please refer to separate report for details. Marta Robertson MD (Electronically Signed) Final Date: 16 January 2021 14:46 S
[2021-01-16 00:18] LABS: Troponin 5 6HR 19.27 ng/L (0-10)
[2021-01-16 00:19] LABS: Troponin 5 6HR Delta -1.73 ng/L (0-12)
[2021-01-16] MEDS: ipratropium-albuterol 3 mL Neb INHALATION ×3 (02:02→14:46)
[2021-01-16 06:29] LABS: Chol HDL Ratio 2.85 mg/dL (0.0-4.40); Cholesterol 157 mg/dL (0-200); HDL Cholesterol 55 mg/dL (60-100); LDL Cholesterol Calculated 84 mg/dL (50-129); LDL HDL Ratio 1.53 RATIO (0.00-3.22); Triglycerides 89 mg/dL (0-150)
[2021-01-16 06:35] LABS: D Dimer 0.31 ug/mIFEU (0-0.59)
[2021-01-16] MEDS: budesonide 0.5 mg/2 mL Neb INHALATION (09:15)
[2021-01-16] MEDS: regadenoson 0.4 Mg/5 ml Syringe IVP (10:07)
--- NOTE | 2021-01-16 14:37 | P.DS_ITS ---
Discharge Providers Date of Admission: 01/15/21 21:54 Date of Discharge: January 16, 2021 Attending Provider at Admission: Liliana Sears MD Attending Provider at Discharge: Kyle Lowery MD Primary Care Provider: Janusz Barboza MD Diagnoses at Discharge Discharge Diagnosis (1) Chest pain: Status: Acute Reason for Visit Reason for Visit: CHEST PAIN Hospital Course Hospital Course Erica Snider is a 65 year old female with past medical history of advanced COPD on home oxygen 2 to 3 L/min, multiple sclerosis, hypertension, hypothyroidism, osteoporosis, anxiety presented to the ER due to chest pain which started after having a stressful phone call with her niece. Chest pain was midsternal radiating to jaw and face. Patient also reported of sustaining a fall 2 weeks ago after which she has had been having similar pains. CT chest was done which was negative for any pulmonary contusion or rib fracture. On review of chart it was seen that patient was scheduled for a stress test by her outpatient computer system validation specialist but decision was made to admit under observation. During exam hospitalization patient did not have any further chest pain. She underwent cardiac stress test on January 16 which is negative for any acute ischemia. Patient is been discharged in hemodynamically stable condition with advised to follow-up with a primary care provider within next 1 week. Physical Exam Narrative: EXAM NARRATIVE: General: No acute distress, AO x3 HEENT: PERRLA, pupils bilaterally equal and reactive, pallors not present Chest: Normal vesicular breath sounds, no added sounds, equal good air entry bilaterally CVS: S1-S2 regular, no murmurs, no tachycardia, no gallops, no rubs Abdomen: Soft, nontender, no organomegaly, bowel sounds present Neuro: No focal deficits, no facial deformity, AO x3, power 5/5 in all limbs Extremities: no edema or cyanosis Discharge Data Data Completed and Pending: Completed Studies During Hospitalization Category Date Time Status Sestamibi Stress Test Request Routi ne Exams 01/16/21 00:02 Completed Pending at discharge Category Date Time Status NM arpan perf SPECT r/s* [id number] Routin e Nuc Med 01/16/21 00:05 Taken Labs from last 24 hours 01/16/21 01/16/21 01/15/21 05:36 05:36 23:54 WBC RBC Hgb Hct MCV MCH MCHC RDW Plt Count MPV Neut % (Auto) Lymph % (Auto) [place] % (Auto) Eos % (Auto) Baso % (Auto) Neut # (Auto) Lymph # (Auto) [place] # (Auto) Eos # (Auto) Baso # (Auto) Nucleated RBC % (a uto) Nucleated RBCs # D-Dimer 0.31 Sodium Potassium Chloride Carbon Dioxide Anion Gap BUN Creatinine GFR Calculation Glucose Calculated Osmolal ity Calcium Total Bilirubin AST ALT Alkaline Phosphata se Troponin T Baselin e Troponin T 120 Min [place] Troponin T Troponin T Hi Sens 6Hr 19.27 H Troponin T Hi Sens 6Hr Delta -1.73 L Total Protein Albumin Globulin Triglycerides 89 Cholesterol 157 LDL Cholesterol, C alc 84 HDL Cholesterol 55 L LDL/HDL Ratio 1.53 Cholesterol/HDL Ra marci 2.85 01/15/21 01/15/21 01/15/21 20:21 18:30 18:30 WBC RBC Hgb Hct MCV MCH MCHC RDW Plt Count MPV Neut % (Auto) Lymph % (Auto) [place] % (Auto) Eos % (Auto) Baso % (Auto) Neut # (Auto) Lymph # (Auto) [place] # (Auto) Eos # (Auto) Baso # (Auto) Nucleated RBC % (a uto) Nucleated RBCs # D-Dimer Sodium 141 Potassium 4.2 Chloride 104 Carbon Dioxide 29 Anion Gap 12.2 BUN 18 Creatinine 0.8 GFR Calculation 71.5 L Glucose 94 Calculated Osmolal ity 294 Calcium 8.6 Total Bilirubin 0.2 AST 11 ALT 18 Alkaline Phosphata se 98 Troponin T Baselin e 21 H Troponin T 120 Min [place] 19.49 H Delta Troponin T -1.51 L Troponin T Hi Sens 6Hr Troponin T Hi Sens 6Hr Delta Total Protein 5.3 L Albumin 3.7 Globulin 1.6 Triglycerides Cholesterol LDL Cholesterol, C alc HDL Cholesterol LDL/HDL Ratio Cholesterol/HDL Ra marci 01/15/21 18:30 WBC 12.1 H RBC 4.22 Hgb 13.1 Hct 41.4 MCV 98.1 MCH 31.0 MCHC 31.6 RDW 13.1 Plt Count 252 MPV 10.6 H Neut % (Auto) 59.6 Lymph % (Auto) 23.3 [place] % (Auto) 9.4 Eos % (Auto) 5.3 Baso % (Auto) 0.5 Neut # (Auto) 7.24 Lymph # (Auto) 2.8 [place] # (Auto) 1.1 H Eos # (Auto) 0.6 Baso # (Auto) 0.1 Nucleated RBC % (a uto) 0 Nucleated RBCs # 0.0 D-Dimer Sodium Potassium Chloride Carbon Dioxide Anion Gap BUN Creatinine GFR Calculation Glucose Calculated Osmolal ity Calcium Total Bilirubin AST ALT Alkaline Phosphata se Troponin T Baselin e Troponin T 120 Min [place] Troponin T Troponin T Hi Sens 6Hr Troponin T Hi Sens 6Hr Delta Total Protein Albumin Globulin Triglycerides Cholesterol LDL Cholesterol, C alc HDL Cholesterol LDL/HDL Ratio Cholesterol/HDL Ra marci Addt'l Data from Hospital Stay: Laboratory Results WBC 12.1 10^3/uL (4.0 -10.0) H 01/15/21 18:30 RBC 4.22 10^6/uL (4.1 -5.3) 01/15/21 18:30 Hgb 13.1 g/dL (11.5-1 5.3) 01/15/21 18:30 Hct 41.4 % (37.0-47.0 ) 01/15/21 18:30 MCV 98.1 fl (81-99) 01/15/21 18:30 MCH 31.0 pg (28.0-34. 0) 01/15/21 18:30 MCHC 31.6 g/dL (30.0-3 6.0) 01/15/21 18:30 RDW 13.1 % (12.1-15.1 ) 01/15/21 18:30 Plt Count 252 10^3/cmm (130 -400) 01/15/21 18:30 MPV 10.6 fL (7.4-10.4 ) H 01/15/21 18:30 Neut % (Auto) 59.6 % 01/15/21 18:30 Lymph % (Auto) 23.3 % 01/15/21 18:30 [place] % (Auto) 9.4 % 01/15/21 18:30 Eos % (Auto) 5.3 % 01/15/21 18:30 Baso % (Auto) 0.5 % 01/15/21 18:30 Neut # (Auto) 7.24 10^3/uL (1.8 -7.7) 01/15/21 18:30 Lymph # (Auto) 2.8 10^3/uL (0.8- 4.8) 01/15/21 18:30 [place] # (Auto) 1.1 10^3/uL (0.2- 0.9) H 01/15/21 18:30 Eos # (Auto) 0.6 10^3/uL (0.0- 0.8) 01/15/21 18:30 Baso # (Auto) 0.1 10^3/uL (0.0- 0.1) 01/15/21 18:30 Nucleated RBC % (a uto) 0 % 01/15/21 18:30 Nucleated RBCs # 0.0 /100WBC 01/15/21 18:30 D-Dimer 0.31 ug/mIFEU (0- 0.59) 01/16/21 05:36 Sodium 141 mmol/L (136-1 45) 01/15/21 18:30 Potassium 4.2 mmol/L (3.5-5 .1) 01/15/21 18:30 Chloride 104 mmol/L (98-10 7) 01/15/21 18:30 Carbon Dioxide 29 mmol/L (22-29) 01/15/21 18:30 Anion Gap 12.2 (5-19) 01/15/21 18:30 BUN 18 mg/dL (8-23) 01/15/21 18:30 Creatinine 0.8 mg/dL (0.5-0. 9) 01/15/21 18:30 GFR Calculation 71.5 mL/min (90-1 30) L 01/15/21 18:30 Glucose 94 mg/dL (65-115) 01/15/21 18:30 Calculated Osmolal ity 294 mOsm/kg (285- 295) 01/15/21 18:30 Calcium 8.6 mg/dL (8.5-10 .5) 01/15/21 18:30 Total Bilirubin 0.2 mg/dL (0.15-1 .2) 01/15/21 18:30 AST 11 U/L (0-32) 01/15/21 18:30 ALT 18 U/L (0-33) 01/15/21 18:30 Alkaline Phosphata se 98 IU/L (35-105) 01/15/21 18:30 Troponin T Baselin e 21 ng/L (0-10) H 01/15/21 18:30 Troponin T 120 Min [place] 19.49 ng/L (0-10) H 01/15/21 20:21 Delta Troponin T -1.51 ABS# (0-10) L 01/15/21 20:21 Troponin T Hi Sens 6Hr 19.27 ng/L (0-10) H 01/15/21 23:54 Troponin T Hi Sens 6Hr Delta -1.73 ng/L (0-12) L 01/15/21 23:54 Total Protein 5.3 g/dL (6.6-8.7 ) L 01/15/21 18:30 Albumin 3.7 g/dL (3.5-5.2 ) 01/15/21 18:30 Globulin 1.6 g/dL (1.3-4.6 ) 01/15/21 18:30 Triglycerides 89 mg/dL (0-150) 01/16/21 05:36 Cholesterol 157 mg/dL (0-200) 01/16/21 05:36 LDL Cholesterol, C alc 84 mg/dL (50-129) 01/16/21 05:36 HDL Cholesterol 55 mg/dL (60-100) L 01/16/21 05:36 LDL/HDL Ratio 1.53 RATIO (0.00- 3.22) 01/16/21 05:36 Cholesterol/HDL Ra marci 2.85 mg/dL (0.0-4 .40) 01/16/21 05:36 Vitals: Last Vital Signs Temp 98.2 F 01/16/21 11:21 Pulse 68 01/16/21 11:21 Resp 18 01/16/21 11:21 BP 151/77 01/16/21 11:21 Pulse Ox 95 01/16/21 11:21 Discharge Plan Discharge Patient Disposition: Home Condition: Stable Prescriptions: Continued Breztri Aerosphere 160-9-4.8 mcg/actuation HFA aerosol inhaler 2 inh inhalation BID Qty: 10.7 RF: 3 guaifenesin [Mucinex] 600 mg tablet extended release 12hr 600 mg PO BID Qty: 20 RF: 0 aspirin [Adult Aspirin Regimen] 81 mg tablet,delayed release (DR/EC) 81 mg PO DAILY RF: 0 gabapentin 600 mg tablet 300 mg PO BID RF: 0 famotidine 20 mg tablet 20 tab PO BID RF: 0 albuterol sulfate 90 mcg/actuation HFA aerosol inhaler 1 puff inhalation Q6H PRN (Reason: Shortness Of Breath) RF: 0 Spiriva with HandiHaler 18 mcg capsule, w/inhalation device 1 cap inhalation DAILY RF: 0 duloxetine 60 mg capsule,delayed release(DR/EC) 60 cap PO DAILY RF: 0 levothyroxine 50 mcg tablet 50 tab PO DAILY RF: 0 metoprolol tartrate 25 mg tablet 25 tab PO BID RF: 0 hydrocodone-acetaminophen 5-325 mg tablet 1 tab PO Q6H PRN (Reason: pain) Qty: 14 RF: 0 amlodipine 5 mg tablet 5 mg PO DAILY RF: 0 bupropion HCl 100 mg Tablet Sustained-Release 12 Hr 100 mg PO DAILY RF: 0 Vitamin C 500 mg Tablet 500 mg PO DAILY RF: 0 folic acid 1 mg Tablet 1 mg PO DAILY RF: 0 Vitamin D3 50 mcg (2,000 unit) Capsule 50 mcg PO DAILY RF: 0 Discontinued prednisone 20 mg Tablet 20 mg PO DAILY RF: 0 Augmentin 875-125 mg Tablet 1 tab PO BID RF: 0 Discharge Orders: Discharge Order (Routine); Ordered 01/16/21 Ordered By: Kyle Lowery Referrals: Janusz Barboza MD [Primary Care Provider] - 7-10 days Discharge Diet: Cardiac Discharge Activity: Resume usual activity Patient Instructions: Opioid Safety Discharge Attestations Time Spent in Discharge Care*: greater than 30 min Specific Discharge Activities: educating patient, discussing with pcp/other providers, discussing with oil field caser/social workers/dc planners, documenting/other paperwork and evaluating patient/reviewing data Status at Discharge: Cognitive status at discharge: cognitively intact , Behavioral status at discharge: cooperative , Functional status at discharge: independent ambulation Overall status at discharge: patient is back to baseline Quality Metrics Clinical Quality Measures During this hospital stay, did patient experience: None Coding Level of Care Code Acute Chg FW DC note Diagnoses Chest pain R07.9
[2021-01-16] MEDS: metoprolol tartrate 25 mg Tablet PO (15:19)
[2021-01-16] MEDS: amlodipine 5 mg Tablet PO (15:19)
== END 2021-01-16 16:27 | disposition home or self-care (01) ==
LOC: ER 21:53 → MEDSURG 23:30
PROVIDERS: Admitting Provider Student in an Organized Health Care Education/Training Program; Emergency Provider Emergency Medicine; PCP Family Medicine; Visit Provider Student in an Organized Health Care Education/Training Program
DX: R07.9 Chest pain, unspecified (principal); J44.9 Chronic obstructive pulmonary disease, unspecified; I10 Essential (primary) hypertension; E03.9 Hypothyroidism, unspecified; F17.200 Nicotine dependence, unspecified, uncomplicated; Z79.82 Long term (current) use of aspirin; Z99.81 Dependence on supplemental oxygen
CPT/HCPCS: 36415; 71250; 78452; 80053; 80061; 84484; 85025; 85378; 93005; 93017; 94640; 94664; 99285; A9500; G0378; J2785; J7626